=== PATIENT | male | born 1985 | race Caucasian/White ===

== ENCOUNTER 2016-09-02 10:54 | Day surgery (SDC) | payer OTHER ==
[2016-09-01 11:49] VITALS: BMI 26.0
[~2016-09-02] VITALS: Ht 175.3 cm; Wt 82.2 kg
[2016-09-02 11:12] VITALS: BP 131/71; PULSE 76; RESP 16; Ht 175.3 cm; Wt 82.2 kg
[2016-09-02] MEDS ORDERED: CEFAZOLIN 1 GM/50 ML (PMX) 50 ML IVPB ONE (11:30)
--- NOTE | 2016-09-02 12:01 | HPN ---
Date/Time of Note Date/Time of Note DATE: 09/02/16 TIME: 12:01 Interval H&P Admission Note Pt. seen H&P reviewed: No system changes NADIYA WILL MD September 02, 2016 12:01
[2016-09-02] MEDS ORDERED: BUPIVACAINE 0.5% (SDV) 30 ML INJ ONE (12:53)
[2016-09-02] MEDS ORDERED: MIDAZOLAM 1 MG/ML 2 ML INJ ONE (12:57)
[2016-09-02] MEDS ORDERED: FENTAnyl 50 MCG/ML VIAL ONE (12:59)
[2016-09-02] MEDS ORDERED: PROPOFOL 100 ML ONE (12:59)
[2016-09-02] MEDS ORDERED: CEFAZOLIN 1 GM INJ ONE (12:59)
[2016-09-02] MEDS ORDERED: KETOROLAC 30 MG INJ ONE (13:24)
[2016-09-02 13:27] VITALS: BP 118/71; PULSE 79; RESP 16
[2016-09-02] MEDS ORDERED: DIPHENHYDRAMINE 50 MG INJ IV PRN (13:30)
[2016-09-02] MEDS ORDERED: HYDROmorphONE (0.2 MG/ML) 10ML SYG IV PRN ×3 (13:30)
[2016-09-02] MEDS ORDERED: MEPERIDINE 25 MG INJ IV PRN (13:30)
[2016-09-02] MEDS ORDERED: ONDANSETRON 4 MG INJ IV PRN (13:30)
[2016-09-02 13:32] VITALS: BP 116/66; PULSE 96; RESP 31
[2016-09-02 13:37] VITALS: BP 121/69; PULSE 84; RESP 24
[2016-09-02 13:42] VITALS: BP 113/63; PULSE 82; RESP 16
[2016-09-02 13:47] VITALS: BP 117/69; PULSE 74; RESP 16
--- NOTE | 2016-09-03 01:37 | OPR ---
DATE OF OPERATION: 09/02/2016 SURGEON: Jacoby Crain MD ANESTHESIA: General. PREOPERATIVE DIAGNOSIS: Right hand carpal tunnel syndrome. POSTOPERATIVE DIAGNOSIS: Right hand carpal tunnel syndrome. OPERATION PERFORMED: 1. Right carpal tunnel release. 2. Median nerve internal neurolysis under magnification. ESTIMATED BLOOD LOSS: Minimal. COMPLICATIONS: None. DESCRIPTION OF PROCEDURE: The patient taken to the operating room and general anesthetic given to p garrett. Gram of ____ given for prophylaxis. Tourniquet applied on right arm. Right arm prepped an d draped in usual sterile manner, exsanguinated with Esmarch bandage, tourniquet inflated to 200 mmH g. A 1-inch incision made over the carpal tunnel. The volar and carpal ligament were divided. The ligament was extremely thickened, and compression of the nerve was noted. The tunnel was entered. The tunnel was dissected with a [place] and ligaments cut sharply with careful attention of preservin g the nerve. Internal neurolysis was carried out under magnification. Nerve was completely decompr essed from the palm to the forearm. Wound irrigated with antibiotic solution. Hemostasis ascertain ed using cautery. Skin closed with 2-0 nylon suture. Compression bandage applied. Anesthetic reve rsed. The patient taken to recovery room in stable condition. Dictated By: JACOBY BAUM/KIMBERLI Conf#: [id number] DID#: [id number]
== END 2016-09-02 15:00 | disposition home or self-care (01) ==
LOC: SDS 10:54
PROVIDERS: ATTEND Specialist
DX: G56.01 Carpal tunnel syndrome, right upper limb (principal)
CPT/HCPCS: 64721; 64727; J0690; J1885; J2250; J3010; Z7512; Z7610